=== PATIENT | male | born 1980 | race Caucasian/White ===

== ENCOUNTER 2018-10-31 07:14 | Emergency (ER) | payer SELFPAY ==
--- NOTE | 2018-10-31 07:16 | ER Report ---
History and Physical Time Seen By MD: 07:16 HPI/ROS CHIEF COMPLAINT: Dental pain HISTORY OF PRESENT ILLNESS: Patient is a 38-year-old male who has had dental pain since this past Sunday. Patient states that he has been having discomfort to the right lower jaw with some swelling to the gums. Patient does have a fractured mandibular incisor. He did make an appointment at the [facility] which began 2 weeks to be seen by dentist. He has been using clear with some relief of pain. Because this is no longer working he presents to the emergency department for evaluation. Allergies: Coded Allergies: No Known Drug Allergies (Unverified , 10/31/18) Home Meds Active Scripts Oxycodone Hcl/Acetaminophen (PERCOCET 5-325 MG TABLET) 1 Each Tablet, 1 EACH PO Q4H for PAIN, #20 TAB 0 Refills Prov:CLARK LAWRENCE MD 10/31/18 Amoxicillin (AMOXICILLIN) 500 Mg Capsule, 1 CAP PO Q8H, #21 CAPSULE 0 Refills TAKE ONE CAPSULE BY MOUTH EVERY 8 HOURS Prov:CLARK LAWRENCE MD 10/31/18 Reported Medications Clove Oil (CLOVE OIL) 3.5 Ml Oil, 3.5 ML MC 10/31/18 Ibuprofen (IBUPROFEN) 200 Mg Capsule, 1 CAP PO Q6H, CAPSULE 10/31/18 Acetaminophen (TYLENOL) 325 Mg Tablet, 325 MG PO, TAB 10/31/18 Past Medical/Surgical History Noncontributory Constitutional Vital Sign - Last 24 Hours 10/31/18 07:19 Temp 97.7 Pulse 89 Resp 18 B/P (MAP) 134/93 Pulse Ox 93 O2 Delivery Room Air Physical Exam General Appearance: Alert, no distress. Eyes: Pupils equal and round no pallor or injection. ENT, Mouth: Ears: Tympanic membranes are normal. Nose: No bleeding. Mouth: Mucous membranes are moist. Fractured right mandibular incisor gingival erythema without evidence of abscess Throat: No erythema or exudates there is no tonsillar hypertrophy and uvula is midline. Musculoskeletal: Neck is supple non tender, no adenopathy. Skin: Warm and dry, no rashes. Medical Decision Making ED Course/Re-evaluation ED Course 10/31/2018 7:31:32 am plan at this time will be oral antibiotics and a prescription for pain medication. Decision to Disposition Date: Oct 31, 2018 Decision to Disposition Time: 07:31 Depart Departure Latest Vital Signs Vital Signs Date Time Temp Pulse Resp B/P (MAP) Pulse Ox O2 Delivery O2 Flow Rate FiO2 10/31/18 07:19 97.7 89 18 134/93 93 Room Air Impression: Primary Impression: Tooth caries Condition: Improved Disposition: HOME OR SELF-CARE New Scripts Oxycodone Hcl/Acetaminophen (PERCOCET 5-325 MG TABLET) 1 Each Tablet 1 EACH PO Q4H for PAIN, #20 TAB 0 Refills Prov: CLARK LAWRENCE MD 10/31/18 Amoxicillin (AMOXICILLIN) 500 Mg Capsule 1 CAP PO Q8H, #21 CAPSULE 0 Refills TAKE ONE CAPSULE BY MOUTH EVERY 8 HOURS Prov: CLARK LAWRENCE MD 10/31/18 Patient Instructions: Dental Caries (DC) Additional Instructions: Keep your follow-up appointment in 2 weeks with the [facility]. Use dental wax as directed. CLARK LAWRENCE MD Oct 31, 2018 07:16
[2018-10-31 07:19] VITALS: BP 134/93
[2018-10-31] MEDS ORDERED: ACET-1966 PO (07:24)
[2018-10-31] MEDS ORDERED: [UNRECOGNIZED DRUG - CODE] MC (07:24)
[2018-10-31] MEDS ORDERED: IBUP-136 PO (07:24)
[2018-10-31] MEDS ORDERED: AMOXICILLIN 500 MG CAP PO ONE (07:30)
[2018-10-31] MEDS ORDERED: OXYC-865 PO (07:33)
[2018-10-31] MEDS ORDERED: AMOX-362 PO (07:33)
== END 2018-10-31 07:40 | disposition home or self-care (01) ==
LOC: ER 07:18
DX: K02.9 Dental caries, unspecified (principal)
CPT/HCPCS: 99283

== ENCOUNTER 2018-11-24 16:01 | Emergency (ER) | payer SELFPAY ==
[~2018-11-24 16:01] MED LIST: ACET-1966 PO; AMOX-362 PO; IBUP-136 PO; OXYC-865 PO; [UNRECOGNIZED DRUG - CODE] MC
--- NOTE | 2018-11-24 16:03 | ER Report ---
History and Physical Time Seen By MD: 16:02 HPI/ROS CHIEF COMPLAINT: Fractured tooth HISTORY OF PRESENT ILLNESS: Patient is a 38-year-old male here with complaints of frontal lower dental pain at the site of a fractured tooth which is been present since approximately October 31. Patient was seen here and treated with amoxicillin, with near complete resolution of infection. Patient had not followed up with a dentist and developed another infection at the same site for the past 3 days. Patient reports having surrounding gingival edema and concern for abscess. REVIEW OF SYSTEMS: Constitutional: No fever, no chills. Eyes: No discharge. ENT: No sore throat. + Front lower dental fracture with necrosis Musculoskeletal: No back pain. Skin: No rashes. Neurological: No headache. Allergies: Coded Allergies: No Known Drug Allergies (Unverified , 11/24/18) Home Meds Active Scripts Oxycodone Hcl/Acetaminophen (PERCOCET 5-325 MG TABLET) 1 Each Tablet, 1 EACH PO Q4H PRN for PAIN, #20 TAB 0 Refills Prov:CAYDEN CHOI DO 11/24/18 Amoxicillin/Pot Clav 875-125 Mg Tab (AUGMENTIN 875-125 TABLET) 1 Each Tablet, 1 TAB PO Q12H for 7 Days, #14 TAB Prov:CAYDEN CHOI DO 11/24/18 Discontinued Reported Medications Clove Oil (CLOVE OIL) 3.5 Ml Oil, 3.5 ML MC 10/31/18 Ibuprofen (IBUPROFEN) 200 Mg Capsule, 1 CAP PO Q6H, CAPSULE 10/31/18 Acetaminophen (TYLENOL) 325 Mg Tablet, 325 MG PO, TAB 10/31/18 Discontinued Scripts Oxycodone Hcl/Acetaminophen (PERCOCET 5-325 MG TABLET) 1 Each Tablet, 1 EACH PO Q4H for PAIN, #20 TAB 0 Refills Prov:CLARK LAWRENCE MD 10/31/18 Amoxicillin (AMOXICILLIN) 500 Mg Capsule, 1 CAP PO Q8H, #21 CAPSULE 0 Refills TAKE ONE CAPSULE BY MOUTH EVERY 8 HOURS Prov:CLARK LAWRENCE MD 10/31/18 Constitutional Vital Sign - Last 24 Hours 11/24/18 11/24/18 11/24/18 11/24/18 16:03 16:08 16:30 16:31 Temp 98.0 Pulse 71 67 Resp 12 B/P (MAP) 110/91 (97) 110/91 102/79 (87) Pulse Ox 97 97 O2 Delivery Room Air Physical Exam General Appearance: The patient is alert, has no immediate need for airway protection and no signs of toxicity. Uncomfortable appearing Eyes: Pupils equal and round no pallor or injection. ENT, Mouth: Throat lower dental fracture with necrosis and surrounding gingival edema Neurological: No focal neurological findings Skin: Warm and dry, no rashes. Musculoskeletal: Neck is supple non tender. Extremities are nontender, nonswollen and have full range of motion. DIFFERENTIAL DIAGNOSIS: After history and physical exam differential diagnosis was considered for dental Beatriz, dental abscess, dental fracture Medical Decision Making ED Course/Re-evaluation ED Course Patient is a 38-year-old male here with complaints of dental fracture with her current infection. I attempted a dental block however the patient did not tolerate this well and I did not identify a discrete pocket of fluctuance on examination. Patient was started on amoxicillin and given analgesics for outpatient treatment. Patient was advised to follow-up with dentistry for definitive management. Return precautions provided. Decision to Disposition Date: Nov 24, 2018 Decision to Disposition Time: 16:29 Depart Departure Latest Vital Signs Vital Signs Date Time Temp Pulse Resp B/P (MAP) Pulse Ox O2 Delivery O2 Flow Rate FiO2 11/24/18 16:31 67 97 11/24/18 16:30 102/79 (87) 11/24/18 16:08 98.0 12 Room Air Impression: Primary Impression: Tooth caries Condition: Improved Disposition: HOME OR SELF-CARE New Scripts Oxycodone Hcl/Acetaminophen (PERCOCET 5-325 MG TABLET) 1 Each Tablet 1 EACH PO Q4H PRN for PAIN, #20 TAB 0 Refills Prov: CAYDEN CHOI DO 11/24/18 Amoxicillin/Pot Clav 875-125 Mg Tab (AUGMENTIN 875-125 TABLET) 1 Each Tablet 1 TAB PO Q12H for 7 Days, #14 TAB Prov: CAYDEN CHOI DO 11/24/18 Patient Instructions: Dental Caries (ED) Additional Instructions: Please take Augmentin 1 tablet twice daily for 7 days. You may take 1 Percocet every 6-8 hours as needed for breakthrough pain. You may take naproxen 500 mg twice daily for primary pain control. Please follow-up with dentistry as soon as possible for definitive management of your dental fracture and infection. Please return if you develop fevers, increased swelling in spite of taking antibiotics, difficulty swallowing, difficulty breathing. CAYDEN CHOI DO Nov 24, 2018 16:03
[2018-11-24 16:30] VITALS: BP 102/79
[2018-11-24] MEDS ORDERED: AMOX-559 PO (16:31)
[2018-11-24] MEDS ORDERED: OXYC-865 PO (16:31)
== END 2018-11-24 16:40 | disposition home or self-care (01) ==
LOC: ER 16:09
DX: K02.9 Dental caries, unspecified (principal)
CPT/HCPCS: 99283